=== PATIENT | male | born 1945 | race Caucasian/White ===

== ENCOUNTER 2016-07-24 02:06 | Emergency (ER) | payer MEDICARE, BC ==
--- NOTE | 2016-07-24 06:47 | ER ---
ADMIT: 07/24/2016 RM/LOC: ER [facility] MR#: [id number] [id number] SANTIAGO FISHMAN [address] [place] [address] Emergency Room Report SEX: M AGE: 71 : 1945 DATE: 07/24/2016 The patient is a 71-year-old male with a past medical history of multiple kidney stone and recently diagnosed yesterday with left-sided 9 mm kidney stone in UV junction, came to the ER with chief complaint of increasing pain, similar pain on the left flank which shoots down to inner left thigh. The patient states pain is very similar to the pain he had yesterday in the ER and using Dilaudid p.o. at midnight did not resolve the pain. The patient stated pain is severe, sharp, and 10/10, and any movement makes the pain worse. The patient states he has been urinating without difficulty and denies passing any stones or hematuria grossly. The patient was afebrile in the ER, was in moderate pain, pain was controlled with Toradol and morphine IV. The patient received Zofran for nausea. CT scan of yesterday was reviewed, the patient had 9 mm urolithiasis on the left side. At the moment, the patient had no obvious signs of infection, is afebrile and has good urine output. The patient is urinating without difficulty. Pain was controlled. The patient has an appointment on Friday with [facility]. The patient was discharged to home with return precautions, and follow up with the Urology Clinic and primary care physician as needed. Brittanie Rene MD/ nadege JOB #: [id number] CC: Brittanie Rene MD, Attending Physician Jennifer Templeton MD, Family Physician
[2017-02-17] MEDS ORDERED: CORDARONE DPS200 MG PO (17:42)
[2017-02-17] MEDS ORDERED: NORVASC DPS10 MG PO (17:42)
[2017-02-17] MEDS ORDERED: COUMADIN DPS3 MG PO ×2 (17:43→17:44)
[2017-02-17] MEDS ORDERED: ZESTRIL DPS20 MG PO (17:44)
[2017-02-17] MEDS ORDERED: GLUCOPHAGE1000 MG PO (17:44)
[2017-02-17] MEDS ORDERED: TOUJEO SOL300 UNIT/1 SQ (17:45)
[2017-02-17] MEDS ORDERED: ASPIRIN EC81 MG PO (17:45)
[2017-02-17] MEDS ORDERED: ZOCOR DPS40 MG PO (17:45)
[2017-02-17] MEDS ORDERED: FLOMAX DPS0.4 MG PO (17:46)
[2017-02-17] MEDS ORDERED: LEVOTHYROXINE25 MCG PO (17:46)
[2017-02-17] MEDS ORDERED: ASCORBIC ACID500 MG PO (17:47)
[2017-02-17] MEDS ORDERED: SENOKOT-S TABL1 EACH PO (17:47)
[2017-02-17] MEDS ORDERED: FEOSOL-DPS325 MG PO (17:47)
[2017-02-17] MEDS ORDERED: VITAMIN D31000 UNI1 PO (17:48)
[2017-02-17] MEDS ORDERED: CATAPRES-T0.2 MG/24 TD (17:48)
[2017-02-17] MEDS ORDERED: MAALOX DPS30 ML PO (17:49)
== END 2016-07-24 03:45 | disposition home or self-care (01) ==
LOC: ER 02:06
DX: N20.0 Calculus of kidney (principal); I10 Essential (primary) hypertension; E11.9 Type 2 diabetes mellitus without complications; Z87.442 Personal history of urinary calculi; Z95.1 Presence of aortocoronary bypass graft; Z79.84 Long term (current) use of oral hypoglycemic drugs; Z79.01 Long term (current) use of anticoagulants; Z79.899 Other long term (current) drug therapy

== ENCOUNTER → 2016-08-19 | Outpatient (CLI) | payer MEDICARE, BC ==
[~2016-08-19] MED LIST: ASCORBIC ACID500 MG PO; ASPIRIN EC81 MG PO; CATAPRES-T0.2 MG/24 TD; CORDARONE DPS200 MG PO; COUMADIN DPS3 MG PO; FEOSOL-DPS325 MG PO; FLOMAX DPS0.4 MG PO; GLUCOPHAGE1000 MG PO; LEVOTHYROXINE25 MCG PO; MAALOX DPS30 ML PO; NORVASC DPS10 MG PO; SENOKOT-S TABL1 EACH PO; TOUJEO SOL300 UNIT/1 SQ; VITAMIN D31000 UNI1 PO; ZESTRIL DPS20 MG PO; ZOCOR DPS40 MG PO
== END | disposition home or self-care (01) ==
LOC: RAD.S 09:00
DX: N20.0 Calculus of kidney (principal); N28.89 Other specified disorders of kidney and ureter; Z96.0 Presence of urogenital implants

== ENCOUNTER 2016-11-15 05:32 | Emergency (ER) | payer MEDICARE, BC ==
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
[2017-02-17] MEDS ORDERED: NORVASC DPS10 MG PO (17:42)
[2017-02-17] MEDS ORDERED: CORDARONE DPS200 MG PO (17:42)
[2017-02-17] MEDS ORDERED: COUMADIN DPS3 MG PO ×2 (17:43→17:44)
[2017-02-17] MEDS ORDERED: GLUCOPHAGE1000 MG PO (17:44)
[2017-02-17] MEDS ORDERED: ZESTRIL DPS20 MG PO (17:44)
[2017-02-17] MEDS ORDERED: TOUJEO SOL300 UNIT/1 SQ (17:45)
[2017-02-17] MEDS ORDERED: ZOCOR DPS40 MG PO (17:45)
[2017-02-17] MEDS ORDERED: ASPIRIN EC81 MG PO (17:45)
[2017-02-17] MEDS ORDERED: FLOMAX DPS0.4 MG PO (17:46)
[2017-02-17] MEDS ORDERED: LEVOTHYROXINE25 MCG PO (17:46)
[2017-02-17] MEDS ORDERED: ASCORBIC ACID500 MG PO (17:47)
[2017-02-17] MEDS ORDERED: FEOSOL-DPS325 MG PO (17:47)
[2017-02-17] MEDS ORDERED: SENOKOT-S TABL1 EACH PO (17:47)
[2017-02-17] MEDS ORDERED: VITAMIN D31000 UNI1 PO (17:48)
[2017-02-17] MEDS ORDERED: CATAPRES-T0.2 MG/24 TD (17:48)
[2017-02-17] MEDS ORDERED: MAALOX DPS30 ML PO (17:49)
== END 2016-11-15 07:25 | disposition home or self-care (01) ==
LOC: ER 05:32
DX: M51.37 Other intervertebral disc degeneration, lumbosacral region (principal); M54.40 Lumbago with sciatica, unspecified side; I10 Essential (primary) hypertension; E11.9 Type 2 diabetes mellitus without complications; I25.10 Atherosclerotic heart disease of native coronary artery without angina pectoris; E78.5 Hyperlipidemia, unspecified; Z87.442 Personal history of urinary calculi; Z95.1 Presence of aortocoronary bypass graft; Z90.49 Acquired absence of other specified parts of digestive tract; Z79.84 Long term (current) use of oral hypoglycemic drugs; Z79.899 Other long term (current) drug therapy